=== PATIENT | female | born 1970 | race Caucasian/White ===

== ENCOUNTER 2017-07-22 22:50 | Emergency (ER) | payer BC ==
[~2017-07-22] VITALS: Ht 165.1 cm; Wt 62.7 kg
[~2017-07-22 22:50] MED LIST: M2 MAGNESIUM100 MG PO; PREVACID 30MG30 M1 PO; VITAMIN D 1001000 IU PO; ZYRTEC-D 5 MG-11 TER PO; [UNRECOGNIZED DRUG - OTHER]; [UNRECOGNIZED DRUG - OTHER]
[2017-07-22 22:58] VITALS: TEMP 98.2
[2017-07-23 00:02] LABS: BASO % 0.4 % (0.0-2.0); EOS % 10.1 % (0-4.0); GRAN % 53.2 % (42.2-75.2); HEMATOCRIT 37.2 % (37.0-47.0); HEMOGLOBIN 12.5 g/dl (12.5-16.0); LYMPH # 2.8 (1.2-3.4); LYMPH % 29.7 % (20.0-51.0); MEAN CELL VOLUME 84 fl (80.0-100.0); MEAN CORPUSCULAR HEMOGLOBIN 28 pg (27.0-31.0); MEAN CORPUSCULAR HGB CONC 34 g/dl (33.0-37.0); MEAN PLATELET VOLUME 9.6 fl (7.4-10.4); MONO # 0.6 (0.1-0.6); MONO % 6.4 % (1.7-9.3); PLATELET COUNT 271 K/mm3 (130-400); RED BLOOD COUNT 4.45 M/mm3 (4.10-5.30); REDCELL DISTRIBUTION WIDTH-CV 13.6 % (11.5-14.5)
[2017-07-23 00:12] LABS: ALANINE AMINOTRANSFERASE 21 U/L (9-52); ALBUMIN 3.6 gm/dL (3.5-5.0); ALKALINE PHOSPHATASE 43 U/L (50-136); ANION GAP 12 mmol/L (7-16); AST,SGOT 24 U/L (15-37); BILIRUBIN,TOTAL 0.3 mg/dL (0.0-1.0); BLOOD UREA NITROGEN 9 mg/dL (7-17); CALCIUM 9.4 mg/dL (8.4-10.2); CARBON DIOXIDE 21 mmol/L (22-30); CHLORIDE 105 mmol/L (98-107); CREATININE, serum 0.68 mg/dL (0.52-1.25); GLUCOSE 93 mg/dL (74-106); LIPASE 485 U/L (23-300); POTASSIUM 3.3 mmol/L (3.4-5.0); SODIUM 138 mmol/L (137-145); TOTAL PROTEIN 6.7 gm/dL (6.4-8.2)
[2017-07-23 00:17] LABS: COLLECTION METHOD CLEAN CATCH
[2017-07-23 00:26] LABS: TROPONIN-I < 0.012 ng/mL (0.000-0.034)
[2017-07-23 00:27] LABS: AMORPHOUS CRYSTAL Present /uL; PH 7 (5-8); SQUAMOUS EPITHELIAL 0-2 /hpf; URINE APPEARANCE Cloudy; URINE BACTERIA None Seen /hpf; URINE BILIRUBIN Negative (NEGATIVE); URINE BLOOD Negative (NEGATIVE); URINE COLOR Yellow; URINE GLUCOSE Negative (NEGATIVE); URINE KETONE Negative (NEGATIVE); URINE LEUKOCYTE ESTERASE Negative (NEGATIVE); URINE NITRATE Negative (NEGATIVE); URINE PROTEIN(semi-quant) Negative (NEGATIVE); URINE RBC 0-2 /hpf; URINE UROBILINOGEN Negative (NEGATIVE)
[2017-07-23] MEDS ORDERED: CELEXA 20MG20 MG/TAB PO (00:41)
[2017-07-23] MEDS ORDERED: ATIVAN 0.50.5 MG/TAB PO (00:41)
[2017-07-23] MEDS ORDERED: TOPAMAX 25MG25 M1 PO (00:42)
[2017-07-23] MEDS ORDERED: ZOFRAN 4MG T4 MG/TAB PO (00:42)
[2017-07-23] MEDS ORDERED: PHARMASSURE MA500 MG PO (00:44)
[2017-07-23] MEDS ORDERED: ZYRTEC 10MG10 MG PO (00:46)
[2017-07-23] MEDS ORDERED: VITAMIND3 5000 (00:46)
[2017-07-23] MEDS ORDERED: VITAMIN B COMPL1 SGL PO (00:47)
[2017-07-23] MEDS ORDERED: CALCIUM CARBON650 M2 (00:47)
[2017-07-23] MEDS ORDERED: PROBIOTIC GOLD1 EACH PO (00:47)
[2017-07-23] MEDS ORDERED: PROTONIX 40MG T40 MG PO (01:37)
[2017-07-23] MEDS ORDERED: CARAFATE 1GM1 G PO (01:37)
[2017-07-23 02:02] VITALS: BP 116/83; PULSE 66
== END 2017-07-23 02:04 | disposition home or self-care (01) ==
LOC: COL.ER 22:50
PROVIDERS: Emergency Medicine
DX: K21.9 Gastro-esophageal reflux disease without esophagitis (principal); M79.7 Fibromyalgia; Z90.49 Acquired absence of other specified parts of digestive tract; Z98.51 Tubal ligation status
CPT/HCPCS: J7030

== ENCOUNTER 2020-12-28 09:25 | Outpatient (CLI) | payer BC ==
[~2020-12-28] VITALS: Ht 165.1 cm; Wt 71.8 kg
[2020-12-28] VITALS (8 sets, daily range): BP systolic 108–119; BP diastolic 63–82; PULSE 73–88; TEMP 98.6–99.2
[~2020-12-28 09:25] MED LIST changes: +ATIVAN 0.50.5 MG/TAB PO; +CALCIUM 600MG+D1 TAB PO; +CARAFATE 1GM1 G PO; +CELEXA10 MG PO; +PHARMASSURE MA500 MG PO; +PROBIOTIC GOLD1 EACH PO; +PROTONIX 40MG T40 MG PO; +TOPAMAX 25MG25 M1 PO; +VITAMIN B COMPL1 SGL PO; +VITAMIND3 5000; +ZOFRAN 4MG T4 MG/TAB PO; +ZYRTEC 10MG10 MG PO
[2020-12-28] MEDS ORDERED: ZOMIG5 MG PO (10:05)
[2020-12-28] MEDS ORDERED: ASTELIN NASAL S34 ML NS (10:06)
[2020-12-28] MEDS ORDERED: NASACORT OTC NS (10:06)
[2020-12-28] MEDS ORDERED: PATADAY 2.5 ML2.5 ML OU (10:07)
[2020-12-28] MEDS ORDERED: MIGRELIEF PO (10:09)
== END 2020-12-28 11:22 | disposition home or self-care (01) ==
LOC: EUO 09:25
DX: U07.1 COVID-19 (principal); E66.9 Obesity, unspecified
CPT/HCPCS: M0245

== ENCOUNTER → 2021-01-11 | Outpatient (CLI) | payer BC ==
[~2021-01-11] MED LIST changes: +ASTELIN NASAL S34 ML NS; +MIGRELIEF PO; +NASACORT OTC NS; +PATADAY 2.5 ML2.5 ML OU; +ZOMIG5 MG PO
[2021-01-11 17:14] LABS: BASO # 0.1 K/mm3 (0.0-0.2); BASO % 0.6 % (0.0-2.0); EOS # 0.8 K/mm3 (0.0-0.7); EOS % 8.9 % (0-4.0); GRAN % 58.2 % (42.2-75.2); HEMATOCRIT 42.1 % (37.0-47.0); HEMOGLOBIN 14.3 g/dl (12.5-16.0); LYMPH # 2.3 K/mm3 (1.2-3.4); LYMPH % 27.1 % (20.0-51.0); MEAN CELL VOLUME 86 fl (80.0-100.0); MEAN CORPUSCULAR HEMOGLOBIN 29 pg (27.0-31.0); MEAN CORPUSCULAR HGB CONC 34 g/dl (33.0-37.0); MEAN PLATELET VOLUME 9.4 fl (7.4-10.4); MONO # 0.4 K/mm3 (0.1-0.6); PLATELET COUNT 297 K/mm3 (130-400); RED BLOOD COUNT 4.91 M/mm3 (4.10-5.30); REDCELL DISTRIBUTION WIDTH-CV 12.1 % (11.5-14.5)
[2021-01-11 17:24] LABS: CALCIUM 9.9 mg/dL (8.4-10.2); CREATININE, serum 0.81 mg/dL (0.57-1.11); MAGNESIUM 1.9 mg/dL (1.6-2.6); POTASSIUM 3.7 mmol/L (3.5-4.5)
== END ==
LOC: COL.LAB 16:54
PROVIDERS: Family Medicine
DX: R25.2 Cramp and spasm (principal)